=== PATIENT | female | born 1965 | race Caucasian/White ===

== ENCOUNTER 2017-09-15 13:56 | Emergency (ER) | payer MEDICAID, OTHER | END 2017-09-15 16:50 | disposition home or self-care (01) | LOC: FTE 13:56 | DX: S62.664A Nondisplaced fracture of distal phalanx of right ring finger, initial encounter for closed fracture (principal); X58.XXXA Exposure to other specified factors, initial encounter; Y92.9 Unspecified place or not applicable | CPT/HCPCS: 29130; 73130-RT; 99283-25 ==

== ENCOUNTER 2018-07-24 12:27 | Emergency (ER) | payer MEDICAID | END 2018-07-24 14:00 | disposition home or self-care (01) | LOC: FTE 12:27 | DX: H65.92 Unspecified nonsuppurative otitis media, left ear (principal) | CPT/HCPCS: 99283; Z7502 ==

== ENCOUNTER → 2018-12-25 | Emergency (ER) | payer MEDICAID ==
[2018-12-25] MEDS: KETOROLAC 60 MG INJ IM (15:06)
[2018-12-25] MEDS: IBUPROFEN 600 MG TAB PO (16:04)
== END | disposition home or self-care (01) ==
LOC: FTE 13:57
DX: M54.40 Lumbago with sciatica, unspecified side (principal)
CPT/HCPCS: 81025; 93971; 99284-25